=== PATIENT | female | born 1950 | race Caucasian/White ===

== ENCOUNTER 2016-09-19 04:18 | Inpatient (IN) | payer BC ==
[~2016-09-19] VITALS: Ht 157.5 cm; Wt 63.4 kg
[2016-09-19] VITALS (15 sets, daily range): BP systolic 98–154; BP diastolic 52–81; PULSE 56–88; RESP 16–20; TEMP 97.8–98.5; O2SAT 94–99
[2016-09-19] MEDS ORDERED: SODIUM CHLORIDE 0.9% FLUSH 5 ML FLUSH IVF PRN (04:30)
[2016-09-19 04:50] LABS: AUTOMATED NEUTROPHIL # 5.1 TH/MM3 (1.8-7.7); BASOPHIL % 0.6 % (0.0-2.0); EOSINOPHIL % 0.6 % (0.0-4.0); HEMATOCRIT 36.7 % (35.0-46.0); HEMO FLAGS DIFF FINAL; LYMPH % 17.7 % (9.0-44.0); LYMPHOCYTE # 1.1 TH/MM3 (1.0-4.8); MEAN CELL VOLUME 85.2 FL (80.0-100.0); MEAN CORPUSCULAR HEMOGLOBIN 29.7 PG (27.0-34.0); MEAN CORPUSCULAR HGB CONC 34.9 % (32.0-36.0); MONO % 2.2 % (0.0-8.0); NEUT % 78.9 % (16.0-70.0); PLATELET COUNT 187 TH/MM3 (150-450); RED BLOOD COUNT 4.31 MIL/MM3 (4.00-5.30); RED CELL DISTRIBUTION WIDTH 13.5 % (11.6-17.2); WHITE BLOOD COUNT 6.5 TH/MM3 (4.0-11.0)
[2016-09-19 05:10] LABS: APTT (PATIENT) 28.5 SEC (24.3-30.1); INTERNATIONAL NORMALIZED RATIO 0.9 RATIO; PROTHROMBIN TIME - PATIENT 10.3 SEC (9.8-11.6)
--- NOTE | 2016-09-19 05:13 | RADRPT ---
EXAM DATE/TIME: 09/19/2016 04:41 [facility] COMPARISON: No previous studies available for comparison. INDICATIONS : Pt having chest pain x 2 hours. MEDICAL HISTORY : None. SURGICAL HISTORY : None. ENCOUNTER: Initial ACUITY: 1 day PAIN SCORE: 7/10 LOCATION: Bilateral chest FINDINGS: There are some patchy infiltrates in the retrocardiac left lower lung without muscle delineation left hemidiaphragm. The right lung is clear. No evidence of pneumothorax. The heart is normal in size. CONCLUSION: Patchy left lower lung infiltrates. Elan Pierre MD on September 19, 2016 at 5:12 Board Certified Radiologist. This report was verified electronically.
[2016-09-19 05:16] LABS: ALT (GPT) 38 U/L (10-53); ANION GAP 10 MEQ/L (5-15); AST (GOT) 37 U/L (15-37); BLOOD UREA NITROGEN 11 MG/DL (7-18); CHLORIDE 99 MEQ/L (98-107); GLOMERULAR FILTRATION RATE 101 ML/MIN (>89); POTASSIUM 3.8 MEQ/L (3.5-5.1); SODIUM (NA) 133 MEQ/L (136-145)
[2016-09-19 05:19] LABS: ALKALINE PHOSPHATASE 77 U/L (45-117); CREATINE KINASE 171 U/L (26-192); TOTAL BILIRUBIN ADULT 0.3 MG/DL (0.2-1.0)
[2016-09-19 05:32] LABS: CKMB 2.5 NG/ML (0.5-3.6)
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
[2016-09-19] MEDS ORDERED: HEPARIN SODIUM - IV 10,000 UNITS/10 ML VIAL IV ONE (06:00)
[2016-09-19] MEDS ORDERED: HEPARIN-D5W INJ 250 ML IV SCH (06:00)
[2016-09-19] MEDS ORDERED: ONDANSETRON HCL 4 MG/2 ML VIAL IVP PRN (06:15)
[2016-09-19] MEDS ORDERED: BISACODYL 10 MG SUPP PR PRN (06:15)
[2016-09-19] MEDS ORDERED: NITROGLYCERIN 2% OINT 1 GM PACKET TOPICAL PRN (06:15)
[2016-09-19] MEDS ORDERED: SODIUM CHLORIDE 0.9% FLUSH 5 ML FLUSH FLUSH PRN (06:15)
[2016-09-19] MEDS ORDERED: MORPHINE SULFATE 4 MG/ML INJ IV PRN (06:15)
[2016-09-19] MEDS ORDERED: ACETAMINOPHEN 325 MG TAB PO PRN (06:15)
[2016-09-19] MEDS ORDERED: ACETAMINOPHEN/HYDROcodone 325 MG/5 MG TAB PO PRN (06:15)
[2016-09-19] MEDS ORDERED: NITROGLYCERIN 2% OINT 1 GM PACKET TOP ONE (06:30)
[2016-09-19] MEDS: SODIUM CHLOR 0.9% 1000 ML INJ 1,000 ML IV SCH ×2 (06:51→16:36)
[2016-09-19] MEDS ORDERED: FAMOTIDINE 20 MG TAB PO ONE (07:45)
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
[2016-09-19] MEDS: SODIUM CHLORIDE 0.9% FLUSH 5 ML FLUSH FLUSH SCH ×2 (09:00→20:14)
[2016-09-19] MEDS: PRAVASTATIN SOD 40 MG TAB PO SCH (09:11)
[2016-09-19] MEDS: ASPIRIN EC 81 MG TABEC PO SCH (09:11)
[2016-09-19] MEDS ORDERED: HEPARIN SODIUM - IV 10,000 UNITS/10 ML VIAL IV PRN ×2 (12:00)
[2016-09-19 13:51] LABS: APTT (PATIENT) 95.1 SEC (24.3-30.1)
--- NOTE | 2016-09-19 14:07 | EKG ---
Date Performed: 09/19/2016 Time Performed: 10:18:56 PTAGE: 66 years EKG: Sinus rhythm MODERATE T-WAVE ABNORMALITY, CONSIDER ANTERIOR ISCHEMIA ABNORMAL ECG PREVIOUS TRACING : 09/19/2016 04.24 Since previous tracing, no significant change noted DOCTOR: Alonzo Abreu Interpretating Date/Time 09/19/2016 14:05:40
--- NOTE | 2016-09-19 14:48 | EKG ---
Date Performed: 09/19/2016 Time Performed: 04:24:07 PTAGE: 66 years EKG: Sinus rhythm T wave inversion anteriorly, consider ischemia, Clinical correlation is recommended BORDERLINE ECG NO PREVIOUS TRACING DOCTOR: Alonzo Abreu Interpretating Date/Time 09/19/2016 14:47:24
[2016-09-19] MEDS ORDERED: PANTOPRAZOLE SODIUM 40 MG VIAL IV PUSH SCH (17:00)
[2016-09-19] MEDS ORDERED: MORPHINE SULFATE 4 MG/ML INJ IV PUSH PRN (17:00)
--- NOTE | 2016-09-19 17:12 | HHI.HP ---
[facility] No Primary Care Physician Admission Diagnosis unstable angina Diagnoses: Chief Complaint: Epigastric pain Travel History International Travel<30 Days: No Contact w/Intl Traveler <30 Da: No Traveled to Known Affected Are: No History of Present Illness The patient is a 66-year-old female with a past medical history of hyperlipidemia who is presenting to the hospital with chest and epigastric pain. The patient says her symptoms started 1-2 weeks ago. She says the pain is located in her epigastric area and does not radiate anywhere. She says the pain is severe and is rated at an 8 out of 10 in severity. She says the pain comes and goes and she is not sure what brings the pain on or what makes it go away. She is not sure it is associated with food. She does have nausea but has not been vomiting. She says she went to her primary care doctor for routine physical recently and the workup was negative over there. 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 She said the workup was normal. The patient believes that her symptoms are similar to indigestion or heartburn. She says she has not been taking any medications to try to alleviate her symptoms. She was noted to have EKG changes and a cardiology evaluation was obtained and the patient was started on a heparin drip in the emergency department. The patient says she is visiting from [place] and is on her way to [place] and she would like to get out of the hospital as soon as possible so she can continue the workup in [place] if possible. Review of Systems Ears, nose, mouth, throat: COMPLAINS OF: Running Nose Cardiovascular: COMPLAINS OF: Chest pain Gastrointestinal: COMPLAINS OF: Abdominal pain, Nausea, DENIES: Constipation Past Family Social History Past Medical History HLP Osteoporosis Past Surgical History Hysterectomy Allergies: Coded Allergies: No Known Allergies (Unverified , 09/19/16) Active Ordered Medications Current Medications Medications (Trade) Dose Ordered Sig/Mary Route Start Time Stop Time Status Last Admin (Heparin Inj) 5,000 units UNSCH PRN IV 09/19/16 12:00 Heparin Sodium (Porcine) 2500 units 2,500 units UNSCH PRN IV 09/19/16 12:00 (Heparin-D5W Inj) 250 ml @ 0 mls/hr TITRATE IV 09/19/16 06:00 09/19/16 08:04 (NS Flush) 2 ml UNSCH PRN FLUSH 09/19/16 06:15 (NS Flush) 2 ml BID FLUSH 09/19/16 09:00 (Zofran Inj) 4 mg Q6H PRN IVP 09/19/16 06:15 (Dulcolax Supp) 10 mg DAILY PRN MS 09/19/16 06:15 (Tylenol) 650 mg Q6H PRN PO 09/19/16 06:15 (Morphine Inj) 2 mg Q3H PRN IV 09/19/16 06:15 (Nitroglycerin 2% Oint) 0.5 inch Q6HR PRN TOPICAL 09/19/16 06:15 (Pravachol) 40 mg DAILY PO 09/19/16 09:00 09/19/16 09:11 (Ecotrin Ec) 81 mg DAILY PO 09/19/16 09:00 09/19/16 09:11 (Protonix Inj) 40 mg Q24H IV PUSH 09/19/16 17:00 UNV (Roxicodone) 5 mg Q4H PRN PO 09/19/16 17:00 UNV (Roxicodone) 10 mg Q4H PRN PO 09/19/16 17:00 UNV (Morphine Inj) 4 mg Q3H PRN IV PUSH 09/19/16 17:00 UNV (Colace) 100 mg BID PO 09/19/16 21:00 UNV Sennosides 17.2 mg 17.2 mg DAILY PO 09/20/16 09:00 UNV (D5W-1/2 NS 1000 ml Inj) 1,000 ml @ 125 mls/hr Q8H IV 09/19/16 17:00 UNV Family History DM Social History The pt does not smoke. She drinks an occasional beer. No illicit drug use. Physical Exam Vital Signs Vital Signs Date Time Temp Pulse Resp B/P Pulse Ox O2 Delivery O2 Flow Rate FiO2 09/19/16 16:34 78 20 152/64 98 Room Air 09/19/16 11:30 68 18 98/52 94 Room Air 09/19/16 09:13 71 16 124/58 97 Room Air 09/19/16 07:59 56 20 114/54 98 Room Air 09/19/16 06:21 68 16 110/64 98 Room Air 09/19/16 04:30 71 16 95 Room Air 09/19/16 04:30 77 16 97 Room Air 09/19/16 04:26 98.5 77 16 100/56 97 Physical Exam GENERAL: This is a well-nourished, well-developed patient, in no apparent distress. SKIN: No rashes, ecchymoses or lesions. Cool and dry. HEAD: Atraumatic. Normocephalic. No temporal or scalp tenderness. EYES: Pupils equal round and reactive. Extraocular motions intact. No scleral icterus. No injection or drainage. ENT: Nose without bleeding, purulent drainage or septal hematoma. Throat without erythema, tonsillar hypertrophy or exudate. Uvula midline. Airway patent. NECK: Trachea midline. No JVD or lymphadenopathy. Supple, nontender, no meningeal signs. CARDIOVASCULAR: Regular rate and rhythm without murmurs, gallops, or rubs. No JVD. RESPIRATORY: Clear to auscultation. Breath sounds equal bilaterally. No wheezes , rales, or rhonchi. GASTROINTESTINAL: Abdomen soft, nondistended. Tender to palpation in the epigastric area. No hepato-splenomegaly, or palpable masses. No guarding. Normal bowel sounds. MUSCULOSKELETAL: Extremities without clubbing, cyanosis, or edema. No joint tenderness, effusion, or edema noted. NEUROLOGICAL: Awake and alert. Cranial nerves II through XII intact. Motor and sensory grossly within normal limits. Five out of 5 muscle strength in all muscle groups. Normal speech. PSYCH: Mood and affect appropriate. Laboratory Laboratory Tests Test 09/19/16 09/19/16 09/19/16 04:35 10:15 13:25 White Blood Count 6.5 Red Blood Count 4.31 Hemoglobin 12.8 Hematocrit 36.7 Mean Corpuscular Volume 85.2 Mean Corpuscular Hemoglobin 29.7 Mean Corpuscular Hemoglobin 34.9 Concent Red Cell Distribution Width 13.5 Platelet Count 187 Mean Platelet Volume 8.0 Neutrophils (%) (Auto) 78.9 Lymphocytes (%) (Auto) 17.7 Monocytes (%) (Auto) 2.2 Eosinophils (%) (Auto) 0.6 Basophils (%) (Auto) 0.6 Neutrophils # (Auto) 5.1 Lymphocytes # (Auto) 1.1 Monocytes # (Auto) 0.1 Eosinophils # (Auto) 0.0 Basophils # (Auto) 0.0 CBC Comment DIFF FINAL Differential Comment Prothrombin Time 10.3 Prothromb Time International 0.9 Ratio Activated Partial 28.5 95.1 Thromboplast Time Sodium Level 133 Potassium Level 3.8 Chloride Level 99 Carbon Dioxide Level 24.0 Anion Gap 10 Blood Urea Nitrogen 11 Creatinine 0.60 Estimat Glomerular Filtration 101 Rate Random Glucose 100 Calcium Level 7.9 Magnesium Level 2.0 Total Bilirubin 0.3 Aspartate Amino Transf 37 (AST/SGOT) Alanine Aminotransferase 38 (ALT/SGPT) Alkaline Phosphatase 77 Total Creatine Kinase 171 Creatine Kinase MB 2.5 Troponin I LESS THAN 0.02 LESS THAN 0.02 B-Type Natriuretic Peptide 24 Total Protein 7.7 Albumin 4.1 Lipase 842 Result Diagram: 09/19/1643409/19/16434 Imaging Last Impressions Chest X-Ray 09/19/16426 Signed Impressions: Service Date/Time: Monday, September 19, 2016 04:41 - CONCLUSION: Patchy left lower lung infiltrates. Elan Pierre MD Assessment and Plan Assessment and Plan Acute pancreatitis The patient describes a 10 pain in her epigastric region. She says it is accompanied by nausea. No history of gallstones and not an alcohol drinker. Lipase was elevated over 800. - Keep the patient nothing by mouth with IV fluids. - Pain control with a bowel regimen. - Check a right upper quadrant ultrasound and lipid profile. - start a PPI. - trend lipase. EKG changes The patient has epigastric pain which is likely secondary to pancreatitis as above. Her EKG did show inverted T waves in V1 and V2 and then in V2 and V3 on a repeat EKG. Cardiology consultation appreciated. Initial two troponins negative. - Continue to trend troponins. - Continue heparin drip for now. - Check a lipid profile. - Monitor on telemetry. - Consider stress test per cardiology. - ASA and statin started. - echo pending. Lung infiltrate Noted on chest x-ray. The patient does not have any symptoms of pneumonia. She is afebrile and without leukocytosis. - Continue to clinically monitor. PPx: Heparin. Code Status Full. Discussed Condition With Pt, nurse. Physician Certification 2 Midnight Certification Type: Admission for Inpatient Services Order for Inpatient Services The services are ordered in accordance with Medicare regulations or non- Medicare payer requirements, as applicable. In the case of services not specified as inpatient-only, they are appropriately provided as inpatient services in accordance with the 2-midnight benchmark. Estimated LOS (days): 2 days is the estimated time the patient will need to remain in the hospital, assuming treatment plan goals are met and no additional complications. Post-Hospital Plan: Home Reymundo Pinzon DO Sep 19, 2016 17:12
[2016-09-19 17:27] LABS: APTT (PATIENT) 48.1 SEC (24.3-30.1)
[2016-09-19] MEDS: DEXT 5%-NACL 0.45% 1000 ML INJ 1,000 ML IV SCH (18:12)
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
--- NOTE | 2016-09-19 21:25 | EKG ---
Date Performed: 09/19/2016 Time Performed: 18:14:15 PTAGE: 66 years EKG: Sinus rhythm NORMAL ECG PREVIOUS TRACING : 09/19/2016 10.18 No significant change from previous tracing noted. DOCTOR: Dick Jorge Interpretating Date/Time 09/19/2016 21:24:04
[2016-09-19] MEDS: DOCUSATE SODIUM 100 MG CAP PO SCH (21:26)
[2016-09-19 23:15] LABS: APTT (PATIENT) 34.1 SEC (24.3-30.1)
[2016-09-20] VITALS (12 sets, daily range): BP systolic 133–149; BP diastolic 59–75; PULSE 53–70; RESP 18; TEMP 98.5; O2SAT 96–99
[2016-09-20] MEDS: DEXT 5%-NACL 0.45% 1000 ML INJ 1,000 ML IV SCH ×2 (01:00→08:06)
[2016-09-20] MEDS ORDERED: SIMV20TA PO (06:01)
[2016-09-20 06:23] LABS: AUTOMATED NEUTROPHIL # 2.9 TH/MM3 (1.8-7.7); BASOPHIL % 0.5 % (0.0-2.0); EOSINOPHIL # 0.2 TH/MM3 (0-0.4); EOSINOPHIL % 4.5 % (0.0-4.0); HEMATOCRIT 33.9 % (35.0-46.0); HEMO FLAGS DIFF FINAL; LYMPH % 24.2 % (9.0-44.0); LYMPHOCYTE # 1.1 TH/MM3 (1.0-4.8); MEAN CORPUSCULAR HEMOGLOBIN 29.1 PG (27.0-34.0); MEAN CORPUSCULAR HGB CONC 33.8 % (32.0-36.0); MONO % 8.1 % (0.0-8.0); NEUT % 62.7 % (16.0-70.0); PLATELET COUNT 171 TH/MM3 (150-450); RED BLOOD COUNT 3.94 MIL/MM3 (4.00-5.30); WHITE BLOOD COUNT 4.6 TH/MM3 (4.0-11.0)
[2016-09-20 06:31] LABS: APTT (PATIENT) 54.8 SEC (24.3-30.1)
[2016-09-20 07:13] LABS: ALKALINE PHOSPHATASE 62 U/L (45-117); ALT (GPT) 24 U/L (10-53); ANION GAP 7 MEQ/L (5-15); AST (GOT) 19 U/L (15-37); BICARBONATE 26.3 MEQ/L (21.0-32.0); BLOOD UREA NITROGEN 5 MG/DL (7-18); CHLORIDE 109 MEQ/L (98-107); GLOMERULAR FILTRATION RATE 103 ML/MIN (>89); POTASSIUM 3.3 MEQ/L (3.5-5.1); SODIUM (NA) 142 MEQ/L (136-145); TOTAL BILIRUBIN ADULT 0.3 MG/DL (0.2-1.0)
[2016-09-20] MEDS: ASPIRIN EC 81 MG TABEC PO SCH (08:05)
[2016-09-20] MEDS: DOCUSATE SODIUM 100 MG CAP PO SCH (08:05)
[2016-09-20] MEDS: PRAVASTATIN SOD 40 MG TAB PO SCH (08:05)
[2016-09-20] MEDS: SODIUM CHLORIDE 0.9% FLUSH 5 ML FLUSH FLUSH SCH (08:06)
[2016-09-20] MEDS ORDERED: POTASSIUM CHLORIDE 20 MEQ CONTROLLED RELEASE TAB PO ONE (08:15)
--- NOTE | 2016-09-20 08:19 | PD.CARD.PN ---
Subjective Subjective Remarks The patient denies chest pain, shortness of breath, bleeding. She has persistent aching/nausea in her epigastric area. Again, she has never had chest discomfort in the epigastric discomfort has been there for a number of days constantly. Telemetry reveals sinus rhythm. Objective Medications Reviewed Vital Signs / I&O Vital Signs Date Time Temp Pulse Resp B/P Pulse Ox O2 Delivery O2 Flow Rate FiO2 09/20/16 06:00 62 09/20/16 05:08 67 18 133/75 99 09/20/16 05:00 70 09/20/16 04:00 57 09/20/16 03:00 56 09/20/16 02:00 53 09/20/16 01:00 55 09/20/16 00:00 65 09/19/16 23:45 81 18 126/67 99 09/19/16 23:00 67 09/19/16 22:00 57 09/19/16 21:00 67 09/19/16 20:10 88 09/19/16 20:00 97.8 68 18 150/74 98 09/19/16 19:39 79 18 96 Room Air 09/19/16 19:38 82 16 123/81 97 Room Air 09/19/16 18:14 75 20 154/68 97 Room Air 09/19/16 16:34 78 20 152/64 98 Room Air 09/19/16 11:30 68 18 98/52 94 Room Air 09/19/16 09:13 71 16 124/58 97 Room Air I/O 09/19/16 09/19/16 09/19/16 09/20/16 09/20/16 09/20/16 07:00 15:00 23:00 07:00 15:00 23:00 Intake Total 100 ml Output Total 1300 ml Balance -1200 ml Intake Oral 50 ml IV Total 50 ml Output Urine Total 1300 ml Physical Exam GENERAL: Well-nourished, well-developed patient in no apparent distress. SKIN: Warm and dry. NECK: JVD normal - less than or equal to 5 cm H20. CARDIOVASCULAR: Regular rate and rhythm without murmurs, gallops, or rubs. RESPIRATORY: Normal breath sounds - equal bilaterally. No accessory muscle use. No wheezes, rales or rubs. PERIPHERY: No cyanosis, or edema. Laboratory Laboratory Tests Test 1/04/2809/19/16 09/19/16 09/19/16 10:15 13:25 17:00 22:36 Troponin I LESS THAN 0.02 LESS THAN 0.02 NG/ML NG/ML Activated Partial 95.1 SEC 48.1 SEC 34.1 SEC Thromboplast Time Triglycerides Level 143 MG/DL Cholesterol Level 173 MG/DL LDL Cholesterol 61 MG/DL HDL Cholesterol 83.0 MG/DL Cholesterol/HDL Ratio 2.08 RATIO Test 09/20/16 05:42 White Blood Count 4.6 TH/MM3 Red Blood Count 3.94 MIL/MM3 Hemoglobin 11.5 GM/DL Hematocrit 33.9 % Mean Corpuscular Volume 86.0 FL Mean Corpuscular Hemoglobin 29.1 PG Mean Corpuscular Hemoglobin 33.8 % Concent Red Cell Distribution Width 14.0 % Platelet Count 171 TH/MM3 Mean Platelet Volume 8.6 FL Neutrophils (%) (Auto) 62.7 % Lymphocytes (%) (Auto) 24.2 % Monocytes (%) (Auto) 8.1 % Eosinophils (%) (Auto) 4.5 % Basophils (%) (Auto) 0.5 % Neutrophils # (Auto) 2.9 TH/MM3 Lymphocytes # (Auto) 1.1 TH/MM3 Monocytes # (Auto) 0.4 TH/MM3 Eosinophils # (Auto) 0.2 TH/MM3 Basophils # (Auto) 0.0 TH/MM3 CBC Comment DIFF FINAL Differential Comment Activated Partial 54.8 SEC Thromboplast Time Sodium Level 142 MEQ/L Potassium Level 3.3 MEQ/L Chloride Level 109 MEQ/L Carbon Dioxide Level 26.3 MEQ/L Anion Gap 7 MEQ/L Blood Urea Nitrogen 5 MG/DL Creatinine 0.59 MG/DL Estimat Glomerular Filtration 103 ML/MIN Rate Random Glucose 113 MG/DL Calcium Level 7.8 MG/DL Total Bilirubin 0.3 MG/DL Aspartate Amino Transf 19 U/L (AST/SGOT) Alanine Aminotransferase 24 U/L (ALT/SGPT) Alkaline Phosphatase 62 U/L Total Protein 6.3 GM/DL Albumin 3.1 GM/DL Lipase 134 U/L Imaging Last 48 hours Impressions Chest X-Ray 09/19/16 0427 Signed Impressions: Service Date/Time: Monday, September 19, 2016 04:41 - CONCLUSION: Patchy left lower lung infiltrates. Elan Pierre MD Gall Bladder Ultrasound 09/19/16 0000 Signed Impressions: Service Date/Time: Monday, September 19, 2016 17:36 - CONCLUSION: Mild gallbladder wall thickening and minimal pericholecystic fluid. No gallstones or sonographic Burns's sign is noted. If there is clinical concern for acute cholecystitis, a hepatobiliary scan may be helpful to confirm cystic duct obstruction. Luis Enrique Lawrence MD Assessment and Plan Assessment and Plan Problems: Epigastric discomfort Mildly abnormal EKGI suspect most likely some variation in lead placement and could be a female pattern. Mild hyperlipidemia Recommendations: The patient is just visiting and wants to go home as soon as possible. She never had chest discomfort and cardiac enzymes are negative. She is extremely active otherwise exercising on a routine basis and has had constant epigastric discomfort for days with negative cardiac enzymes. At this point in time I feel from a cardiac standpoint she can follow-up with her other physicians as soon as possible and we can hold off on further cardiac testing. I will leave further discharge management to the primary service from a GI standpoint. Neeraj Thayer MD Sep 20, 2016 08:19
[2016-09-20] MEDS ORDERED: SENNOSIDES 8.6 MG TAB PO SCH (09:00)
[2016-09-20] MEDS ORDERED: POTASSIUM CHLORIDE 25 MEQ EFFERVESCENT TAB PO ONE (09:00)
[2016-09-20] MEDS ORDERED: PANT40TA3 PO (09:06)
--- NOTE | 2016-09-20 09:06 | HHI.DCPOC ---
Discharge Care Plan Diagnosis: (1) Biliary colic (2) Pancreatitis (3) Atypical chest pain Goals to Promote Your Health * To prevent worsening of your condition and complications * To maintain your health at the optimal level Directions to Meet Your Goals Take your medications as prescribed Follow your dietary instruction Follow activity as directed Keep your appointments as scheduled Take your immunizations and boosters as scheduled If your symptoms worsen call your PCP, if no PCP go to Urgent Care Center or Emergency Room Smoking is Dangerous to Your Health. Avoid second hand smoke Call the 24-hour hour crisis hotline for domestic abuse at Reymundo Pinzon DO Sep 20, 2016 09:06
--- NOTE | 2016-09-20 09:14 | HHI.PR ---
Subjective Remarks The patient said that she was feeling better. She wanted to be discharged. She said she will try to find a doctor in [place]. She said she would rather not have further testing here if it could be done as an outpatient. She had no acute complaints at this time. Objective Vitals Vital Signs Date Time Temp Pulse Resp B/P Pulse Ox O2 Delivery O2 Flow Rate FiO2 09/20/16 06:00 62 09/20/16 05:08 67 18 133/75 99 09/20/16 05:00 70 09/20/16 04:00 57 09/20/16 03:00 56 09/20/16 02:00 53 09/20/16 01:00 55 09/20/16 00:00 65 09/19/16 23:45 81 18 126/67 99 09/19/16 23:00 67 09/19/16 22:00 57 09/19/16 21:00 67 09/19/16 20:10 88 09/19/16 20:00 97.8 68 18 150/74 98 09/19/16 19:39 79 18 96 Room Air 09/19/16 19:38 82 16 123/81 97 Room Air 09/19/16 18:14 75 20 154/68 97 Room Air 09/19/16 16:34 78 20 152/64 98 Room Air 09/19/16 11:30 68 18 98/52 94 Room Air 09/19/16 09:13 71 16 124/58 97 Room Air I/O 09/19/16 09/19/16 09/19/16 09/20/16 09/20/16 09/20/16 07:00 15:00 23:00 07:00 15:00 23:00 Intake Total 100 ml Output Total 1300 ml Balance -1200 ml Intake Oral 50 ml IV Total 50 ml Output Urine Total 1300 ml Result Diagram: 09/20/16 0542 09/20/16 0542 Imaging Last Impressions Chest X-Ray 09/19/16 0427 Signed Impressions: Service Date/Time: Monday, September 19, 2016 04:41 - CONCLUSION: Patchy left lower lung infiltrates. Elan Pierre MD Gall Bladder Ultrasound 09/19/16 0000 Signed Impressions: Service Date/Time: Monday, September 19, 2016 17:36 - CONCLUSION: Mild gallbladder wall thickening and minimal pericholecystic fluid. No gallstones or sonographic Burns's sign is noted. If there is clinical concern for acute cholecystitis, a hepatobiliary scan may be helpful to confirm cystic duct obstruction. Luis Enrique Lawrence MD Objective Remarks GENERAL: This is a well-nourished, well-developed patient, in no apparent distress. SKIN: No rashes, ecchymoses or lesions. Cool and dry. HEAD: Atraumatic. Normocephalic. No temporal or scalp tenderness. EYES: Pupils equal round and reactive. Extraocular motions intact. No scleral icterus. No injection or drainage. ENT: Nose without bleeding, purulent drainage or septal hematoma. Throat without erythema, tonsillar hypertrophy or exudate. Uvula midline. Airway patent. NECK: Trachea midline. No JVD or lymphadenopathy. Supple, nontender, no meningeal signs. CARDIOVASCULAR: Regular rate and rhythm without murmurs, gallops, or rubs. No JVD. RESPIRATORY: Clear to auscultation. Breath sounds equal bilaterally. No wheezes , rales, or rhonchi. GASTROINTESTINAL: Abdomen soft, nondistended. Nontender to palpation. No hepato- splenomegaly, or palpable masses. No guarding. Normal bowel sounds. MUSCULOSKELETAL: Extremities without clubbing, cyanosis, or edema. No joint tenderness, effusion, or edema noted. NEUROLOGICAL: Awake and alert. Cranial nerves II through XII intact. Motor and sensory grossly within normal limits. Five out of 5 muscle strength in all muscle groups. Normal speech. PSYCH: Mood and affect appropriate. Medications and IVs Current Medications Medications (Trade) Dose Ordered Sig/Mary Route Start Time Stop Time Status Last Admin (NS Flush) 2 ml UNSCH PRN FLUSH 09/19/16 06:15 (NS Flush) 2 ml BID FLUSH 09/19/16 09:00 09/20/16 08:06 (Zofran Inj) 4 mg Q6H PRN IVP 09/19/16 06:15 (Dulcolax Supp) 10 mg DAILY PRN IN 09/19/16 06:15 (Tylenol) 650 mg Q6H PRN PO 09/19/16 06:15 (Morphine Inj) 2 mg Q3H PRN IV 09/19/16 06:15 (Nitroglycerin 2% Oint) 0.5 inch Q6HR PRN TOPICAL 09/19/16 06:15 (Pravachol) 40 mg DAILY PO 09/19/16 09:00 09/20/16 08:05 (Ecotrin Ec) 81 mg DAILY PO 09/19/16 09:00 09/20/16 08:05 (Protonix Inj) 40 mg Q24H IV PUSH 09/19/16 17:00 09/19/16 18:12 (Roxicodone) 5 mg Q4H PRN PO 09/19/16 17:00 (Roxicodone) 10 mg Q4H PRN PO 09/19/16 17:00 (Morphine Inj) 4 mg Q3H PRN IV PUSH 09/19/16 17:00 (Colace) 100 mg BID PO 09/19/16 21:00 09/20/16 08:05 Sennosides 17.2 mg 17.2 mg DAILY PO 09/20/16 09:00 09/20/16 08:05 (D5W-1/2 NS 1000 ml Inj) 1,000 ml @ 125 mls/hr Q8H IV 09/19/16 17:00 09/20/16 08:06 (K-Lyte Cl Eff) 25 meq ONCE ONCE PO 09/20/16 09:00 09/20/16 09:01 UNV A/P Assessment and Plan Acute pancreatitis/ biliary colic The patient describes a severe pain in her epigastric region. She says it is accompanied by nausea. No history of gallstones and not an alcohol drinker. Lipase was elevated over 800. LFTs not elevated. Gallbladder US: Mild gallbladder wall thickening and minimal pericholecystic fluid; No gallstones or sonographic Burns's sign is noted. Lipase returned to normal levels and the pt was feeling well 09/20. Triglycerides not elevated. - the pt would like to defer further GI work-up as an outpt. - ADAT. - start a PPI. - low fat diet. EKG changes The patient has epigastric pain which is likely secondary to pancreatitis/ biliary colic as above. Her EKG did show inverted T waves in V1 and V2 and then in V2 and V3 on a repeat EKG. Cardiology consultation appreciated. Troponins have been negative. - d/c heparin drip. - Monitor on telemetry. - Consider stress test as an outpt. No further inpatient testing indicated at this time per cardiology. - continue statin. - echo pending. Lung infiltrate Noted on chest x-ray. The patient does not have any symptoms of pneumonia. She is afebrile and without leukocytosis. - Continue to clinically monitor. Hypokalemia - repleted with KCl. PPx: Ambulation. Discharge Planning D/c home. Reymundo Pinzon DO Sep 20, 2016 09:14
== END 2016-09-20 10:46 | disposition home or self-care (01) | DRG 440 ==
LOC: NEPC 04:18 → NEDA 05:56 → NEDH 10:55 → HCIS 19:51
PROVIDERS: ADMIT Hospitalist; ATTEND Hospitalist
DX: K85.90 Acute pancreatitis without necrosis or infection, unspecified (principal); E78.5 Hyperlipidemia, unspecified; R91.8 Other nonspecific abnormal finding of lung field; E87.6 Hypokalemia; K80.50 Calculus of bile duct without cholangitis or cholecystitis without obstruction
CPT/HCPCS: 71010; 76705; 80053; 80061; 82550; 82552; 83690; 83735; 83880; 84484; 85025; 85610; 85730; 93005; C9113; J1644; J7030